=== PATIENT | male | born 1955 | race Caucasian/White ===

== ENCOUNTER 2017-09-04 09:56 | Emergency (ER) | payer BC, OTHER ==
[2017-09-04] MEDS ORDERED: HYDROmorphone 1 MG/ML 1 ML SYRINGE IVP STA ×2 (10:40→12:21)
[2017-09-04] MEDS ORDERED: KETOROLAC 30 MG/ML 1 ML VIAL IVP STA (10:40)
[2017-09-04] MEDS ORDERED: ONDANSETRON 4 MG/2 ML VIAL IVP STA (10:40)
[2017-09-04] MEDS ORDERED: SODIUM CHLORIDE 0.9% 1,000 ML IV STA ×2 (10:40)
[2017-09-04 11:16] LABS: Amorphous Sediment,Urine Few /hpf; Appearance,Urine Turbid (Clear); Basophils % (A) 0 %; Bilirubin,Urine Negative (Negative); Blood,Urine Moderate (Negative); Color,Urine Yellow; Eosinophils # (A) 0.1 k/uL (0-0.7); Eosinophils % (A) 1 %; Glucose,Urine (UA) Negative (Negative); HCT 44.7 % (39.0-53.0); HGB 15.1 gm/dL (13.0-17.5); Ketones,Urine Negative (Negative); Leukocyte Esterase,Urine Negative (Negative); Lymphocytes # (A) 0.7 k/uL (1.0-4.8); Lymphocytes % (A) 8 %; MCHC 33.7 g/dL (31.0-37.0); Mean Platelet Volume 6.5; Monocytes # (A) 0.4 k/uL (0-1.0); Monocytes % (A) 4 %; Mucus,Urine Moderate /hpf; Neutrophils # (A) 7.6 k/uL (1.3-7.7); Neutrophils % (A) 86 %; Nitrite,Urine Negative (Negative); PH, Urine 5.5 (5.0-8.0); Platelet Count 204 k/uL (150-450); Protein,Urine Trace (Negative); RBC 4.71 m/uL (4.30-5.90); RBC,Urine 17 /hpf (0-5); RDW 12.3 % (11.5-15.5); Specific Gravity,Urine 1.019 (1.001-1.035); Urobilinogen,Urine <2.0 mg/dL (<2.0); WBC 8.9 k/uL (3.8-10.6); WBC,Urine 16 /hpf (0-5)
[2017-09-04 11:17] LABS: Anion Gap 8 mmol/L; Blood Urea Nitrogen 19 mg/dL (9-20); Calcium 9.7 mg/dL (8.4-10.2); Carbon Dioxide 29 mmol/L (22-30); Chloride 103 mmol/L (98-107); Glucose 108 mg/dL (74-99); Potassium 4.9 mmol/L (3.5-5.1); Sodium 140 mmol/L (137-145)
--- NOTE | 2017-09-04 11:29 | ED ---
Abdominal Pain HPI - General Chief Complaint: Abdominal Pain Stated Complaint: POSS KIDNEY STONE Time Seen by Provider: 09/04/17 10:25 Source: patient Mode of arrival: ambulatory Limitations: no limitations - History of Present Illness Initial Comments: This 62-year-old white male presents with a complaint of some left flank pain. He states that it is fairly severe in nature. He came on very suddenly earlier this morning. It radiates into the left lower quadrant. He does have a urge to urinate. He has occasional dysuria. He denies any hematuria. He denies any previous similar incidents. He denies any history of kidney stones in the past. There is no fever or chills. He has had some nausea and one episode of vomiting but no diarrhea. No other complaints or modifying factors. - Related Data Home Medications Medication Instructions Recorded Confirmed Ibuprofen [Motrin] 800 mg PO TID PRN 09/04/17 09/04/17 Multivitamins, Thera [Multivitamin 1 tab PO DAILY 09/04/17 09/04/17 (formulary)] Previous Rx's Medication Instructions Recorded Ciprofloxacin HCl [Cipro] 500 mg PO Q12HR #14 tablet 09/04/17 Hydrocodone/Acetaminophen [[place] 1 - 2 each PO Q4HR PRN #30 tab 09/04/17 5-325] Ibuprofen [Motrin] 800 mg PO Q8H PRN #20 tab 09/04/17 Ondansetron [Zofran ODT] 8 mg PO Q8HR PRN #12 tab 09/04/17 Tamsulosin [Flomax] 0.4 mg PO DAILY #15 cap 09/04/17 Allergies Allergy/AdvReac Type Severity Reaction Status Date / Time No Known Allergies Allergy Verified 09/04/17 10:15 Review of Systems ROS Statement: Those systems with pertinent positive or pertinent negative responses have been documented in the HPI. ROS Other: All systems not noted in ROS Statement are negative. Past Medical History Past Medical History: Deep Vein Thrombosis (DVT), Pulmonary Embolus (PE) History of Any Multi-Drug Resistant Organisms: None Reported Past Surgical History: No Surgical Hx Reported Past Psychological History: No Psychological Hx Reported Smoking Status: Never smoker Past Alcohol Use History: None Reported Past Drug Use History: None Reported General Exam - General Exam Comments Initial Comments: GENERAL: The patient is well nourished and well hydrated. VITAL SIGNS: Heart rate, blood pressure, respiratory rate reviewed as recorded in nurse's notes. EYES: Pupils are round and reactive. Extraocular movements are intact. No conjunctival / lid redness or swelling. ENT: No external evidence of injury, swelling, or ecchymosis. Airway is patent. Throat is clear. NECK: Nontender. No swelling or evidence of injury. No subcutaneous emphysema. Trachea is midline. No thyroid mass. HEART: Regular rate and rhythm. Good peripheral pulses. LUNGS/CHEST: Breath sounds clear and equal bilaterally. No rales, rhonchi, or wheezes. No ecchymosis, subcutaneous emphysema, or tenderness. ABDOMEN: Tenderness is noted into the left lower quadrant. There is moderate to significant left flank tenderness noted. No palpable masses or organomegaly. No peritoneal signs. No abdominal wall swelling or ecchymosis. EXTREMITIES: No extremity tenderness. Normal muscle tone and function. No thoracolumbar tenderness. NEUROLOGIC: Sensation is grossly intact. Cranial nerve exam reveals face is symmetrical, tongue is midline, speech is clear. SKIN: No abrasions or ecchymosis is noted. No induration or masses noted. PSYCHIATRIC: Alert and oriented. Appropriate behavior and judgment. Limitations: no limitations Course Vital Signs 09/04/17 10:09 Temperature 97.7 F Pulse Rate 73 Respiratory 20 Rate Blood Pressure 130/78 O2 Sat by Pulse 99 Oximetry Medical Decision Making - Medical Decision Making The patient is seen and examined. All diagnostics are reviewed. An IV is established and he receives Dilaudid, Toradol, and Zofran intravenously. He has significant relief noted on recheck. The pain did later come back and he receives another 0.5 mg of Dilaudid as well as 10 mg of Reglan. The laboratory is unremarkable. The urinalysis does show increased red blood cells and white blood cells. The computed tomography scan of the abdomen and pelvis does show a 4 mm distal left ureteral stone with hydroureteronephrosis. It is felt as though his symptoms are quite consistent with kidney stones as well. It is felt as though she is stable for outpatient treatment. He understands and agrees with this plan and leaves in no identifiable distress. - Lab Data Result diagrams: 09/04/17 10:48 09/04/17 10:48 Lab Results 09/04/17 09/04/17 09/04/17 Range/Units 10:48 10:48 10:48 WBC 8.9 (3.8-10.6) k/uL RBC 4.71 (4.30-5.90) m/uL Hgb 15.1 (13.0-17.5) gm/dL Hct 44.7 (39.0-53.0) % MCV 95.0 (80.0-100.0) fL MCH 32.0 (25.0-35.0) pg MCHC 33.7 (31.0-37.0) g/dL RDW 12.3 (11.5-15.5) % Plt Count 204 (150-450) k/uL Neutrophils % 86 % Lymphocytes % 8 % Monocytes % 4 % Eosinophils % 1 % Basophils % 0 % Neutrophils # 7.6 (1.3-7.7) k/uL Lymphocytes # 0.7 L (1.0-4.8) k/uL Monocytes # 0.4 (0-1.0) k/uL Eosinophils # 0.1 (0-0.7) k/uL Basophils # 0.0 (0-0.2) k/uL Sodium 140 (137-145) mmol/L Potassium 4.9 (3.5-5.1) mmol/L Chloride 103 (98-107) mmol/L Carbon Dioxide 29 (22-30) mmol/L Anion Gap 8 mmol/L BUN 19 (9-20) mg/dL Creatinine 1.19 (0.66-1.25) mg/dL Est GFR (MDRD) Af Amer >60 (>60 ml/min/1.73 sqM) Est GFR (MDRD) Non-Af >60 (>60 ml/min/1.73 sqM) Glucose 108 H (74-99) mg/dL Calcium 9.7 (8.4-10.2) mg/dL Urine Color Yellow Urine Appearance Turbid (Clear) Urine pH 5.5 (5.0-8.0) Ur Specific [place] 1.019 (1.001-1.035) Urine Protein Trace H (Negative) Urine Glucose (UA) Negative (Negative) Urine Ketones Negative (Negative) Urine Blood Moderate H (Negative) Urine Nitrite Negative (Negative) Urine Bilirubin Negative (Negative) Urine Urobilinogen <2.0 (<2.0) mg/dL Ur Leukocyte Esterase Negative (Negative) Urine RBC 17 H (0-5) /hpf Urine WBC 16 H (0-5) /hpf Amorphous Sediment Few H (None) /hpf Urine Mucus Moderate H (None) /hpf Disposition Clinical Impression: Left flank pain, Abdominal pain, Nausea and vomiting, Kidney stone on left side Disposition: HOME SELF-CARE Condition: Good Instructions: Kidney Stones (ED) Prescriptions: Ciprofloxacin HCl [Cipro] 500 mg PO Q12HR #14 tablet Hydrocodone/Acetaminophen [[place] 5-325] 1 - 2 each PO Q4HR PRN #30 tab PRN Reason: Pain Ibuprofen [Motrin] 800 mg PO Q8H PRN #20 tab PRN Reason: Pain Ondansetron [Zofran ODT] 8 mg PO Q8HR PRN #12 tab PRN Reason: Nausea Tamsulosin [Flomax] 0.4 mg PO DAILY #15 cap Referrals: Thomas Diamond DO [Primary Care Provider] - 1-2 days Marko Mendez MD [STAFF PHYSICIAN] - 09/08/17 Time of Disposition: 12:23
--- NOTE | 2017-09-04 12:03 | CT ---
EXAMINATION TYPE: CT abdomen pelvis wo con DATE OF EXAM: 09/04/2017 COMPARISON: NONE HISTORY: Patient complains of left flank pain, nausea, and difficulty urinating. CT DLP: 983 mGycm Examination of the solid and hollow viscera is limited given the lack of contrast. FINDINGS: LUNG BASES: No evidence for nodule. No evidence for infiltrate. LIVER/GB: The gallbladder is unremarkable. Small subcentimeter hepatic cysts.. PANCREAS: No pancreatic mass identified. No inflammatory process seen. SPLEEN: No evidence for splenomegaly. No intrasplenic lesions seen. ADRENALS: No adrenal nodules identified. No evidence for thickening. KIDNEYS: 4 mm distal left ureteral calculus approximately 3 cm from the urinary bladder results in mi ld left-sided hydroureteronephrosis. Mild left perinephric stranding. 4.4 mm nonobstructing calculus lower pole left kidney. Mid to upper pole calculus right kidney measuring 8.5 mm. BOWEL: Appendix has a normal appearance. No evidence of bowel obstruction. No inflammatory process. Lymph nodes: No evidence for adenopathy greater than 1 cm. Abdominal aorta: Atheromatous changes seen. No evidence for aneurysm. Genital organs: No significant abnormality. Other: No significant abnormality. IMPRESSION: 4 mm distal left ureteral calculus approximately 3 cm from the urinary bladder results in mild left-s ided hydroureteronephrosis.
[2017-09-04] MEDS ORDERED: METOCLOPRAMIDE 5 MG/ML 2 ML VIAL IVP STA (12:21)
[2017-09-04 12:55] VITALS: BP 101/56; PULSE 65; RESP 18; TEMP 96.7
== END 2017-09-04 12:55 | disposition home or self-care (01) ==
LOC: EC 09:56
DX: N13.2 Hydronephrosis with renal and ureteral calculous obstruction (principal); R11.2 Nausea with vomiting, unspecified; Z86.711 Personal history of pulmonary embolism; Z86.718 Personal history of other venous thrombosis and embolism; Z79.899 Other long term (current) drug therapy
CPT/HCPCS: 36415; 80048; 85025; 81001; 74176; 99284; 96374; 96375 ×3; 96376; 96361 ×2; J2765; J2405; J1885; J1170

== ENCOUNTER 2018-01-16 12:05 | Observation (INO) | payer BC ==
[2018-01-16] MEDS ORDERED: NITROGLYCERIN OINT 1 INCH/GM PACKET TOPICAL STA (12:44)
[2018-01-16] MEDS ORDERED: RX INFO: IV CONTRAST WAS GIVEN 1 EACH MISC MISCELLANE PRN (12:44)
[2018-01-16] MEDS ORDERED: ASPIRIN 81 MG PO STA (12:44)
--- NOTE | 2018-01-16 12:47 | ED ---
General Adult HPI - General Chief complaint: Chest Pain Stated complaint: Chest Pain Time Seen by Provider: 01/16/18 12:25 Source: patient, family, RN notes reviewed Mode of arrival: wheelchair Limitations: no limitations - History of Present Illness Initial comments: Patient is a pleasant 62-year-old male presenting to the emergency Department with chest discomfort. Onset started a day or so ago. Discomfort was left lower lateral ribs. That discomfort has resolved. Yesterday afternoon patient had some discomfort of his left upper back that is mild and remains. Approximately 1 hour prior to arrival patient had discomfort of his left chest under the breast. Patient has difficulty describing this type of discomfort. Discomfort was somewhat severe however now is only mild. Patient did have associated dyspnea. Discomfort also increases with deep breaths and cough. Patient does feel nauseated and sweaty. Patient does have history of pulmonary embolism approximately 7 years ago. Patient is not currently on any anticoagulation. Patient is unclear symptoms are similar or not. - Related Data Home Medications Medication Instructions Recorded Confirmed Calcium/Magnesium/Zinc 1 tab PO DAILY 01/16/18 01/16/18 [Epzbflt-Lnxinlkap-Fndz Tablet] Vitamin B Complex 1 cap PO DAILY 01/16/18 01/16/18 Allergies Allergy/AdvReac Type Severity Reaction Status Date / Time acetaminophen [From [place]] AdvReac Abdominal Verified 01/16/18 12:33 Pain/Hallucinations/Dizziness hydrocodone [From [place]] AdvReac Abdominal Verified 01/16/18 12:33 Pain/Hallucinations/Dizziness Review of Systems ROS Statement: Those systems with pertinent positive or pertinent negative responses have been documented in the HPI. ROS Other: All systems not noted in ROS Statement are negative. Constitutional: Denies: fever Eyes: Denies: eye pain ENT: Denies: ear pain Respiratory: Reports: dyspnea. Denies: cough Cardiovascular: Reports: chest pain Endocrine: Denies: fatigue Gastrointestinal: Reports: nausea. Denies: abdominal pain Genitourinary: Denies: dysuria Musculoskeletal: Reports: back pain Skin: Denies: rash Neurological: Denies: headache Past Medical History Past Medical History: Deep Vein Thrombosis (DVT), Pulmonary Embolus (PE) History of Any Multi-Drug Resistant Organisms: None Reported Past Surgical History: No Surgical Hx Reported Past Psychological History: No Psychological Hx Reported Smoking Status: Never smoker Past Alcohol Use History: None Reported Past Drug Use History: None Reported General Exam Limitations: no limitations General appearance: alert, in no apparent distress Head exam: Present: atraumatic Eye exam: Present: normal appearance, PERRL ENT exam: Present: normal oropharynx Neck exam: Present: normal inspection Respiratory exam: Present: normal lung sounds bilaterally. Absent: chest wall tenderness Cardiovascular Exam: Present: regular rate, normal rhythm, normal heart sounds Expanded Peripheral pulses: 2+: Radial (R), Radial (L), Posterior Tibialis (R), Posterior Tibialis (L) GI/Abdominal exam: Present: soft. Absent: tenderness Extremities exam: Present: normal inspection. Absent: pedal edema, calf tenderness Back exam: Present: normal inspection. Absent: tenderness Neurological exam: Present: alert Psychiatric exam: Present: normal affect, normal mood Skin exam: Present: normal color Course Vital Signs 01/16/18 12:06 Temperature 98.1 F Pulse Rate 75 Respiratory 18 Rate Blood Pressure 130/60 O2 Sat by Pulse 98 Oximetry - Reevaluation(s) Reevaluation #1: 01/16/18 14:28 Patient does not meet sepsis criteria EKG Findings - EKG Comments: EKG Findings:: Normal sinus rhythm 72. AL 156. QRS 90. QT 364. QTC 398. Left axis. Left anterior fascicular block. No acute ST change. Medical Decision Making - Medical Decision Making Patient reevaluated and resting comfortably in bed. Patient and family updated on results and plan. Case was discussed with Dr. wilson, who will admit for Dr. Garcia - Lab Data Result diagrams: 01/16/18 12:20 01/16/18 12:20 Lab Results 01/16/18 01/16/18 01/16/18 Range/Units 12:20 12:20 12:20 WBC 7.8 (3.8-10.6) k/uL RBC 4.50 (4.30-5.90) m/uL Hgb 14.4 (13.0-17.5) gm/dL Hct 42.4 (39.0-53.0) % MCV 94.3 (80.0-100.0) fL MCH 31.9 (25.0-35.0) pg MCHC 33.9 (31.0-37.0) g/dL RDW 12.7 (11.5-15.5) % Plt Count 175 (150-450) k/uL Neutrophils % 79 % Lymphocytes % 10 % Monocytes % 8 % Eosinophils % 1 % Basophils % 0 % Neutrophils # 6.1 (1.3-7.7) k/uL Lymphocytes # 0.8 L (1.0-4.8) k/uL Monocytes # 0.6 (0-1.0) k/uL Eosinophils # 0.1 (0-0.7) k/uL Basophils # 0.0 (0-0.2) k/uL PT (9.0-12.0) sec INR (<1.2) APTT (22.0-30.0) sec Sodium 143 (137-145) mmol/L Potassium 4.3 (3.5-5.1) mmol/L Chloride 105 (98-107) mmol/L Carbon Dioxide 24 (22-30) mmol/L Anion Gap 14 mmol/L BUN 14 (9-20) mg/dL Creatinine 0.91 (0.66-1.25) mg/dL Est GFR (CKD-EPI)AfAm >90 (>60 ml/min/1.73 sqM) Est GFR (CKD-EPI)NonAf 89 (>60 ml/min/1.73 sqM) Glucose 91 (74-99) mg/dL Calcium 9.6 (8.4-10.2) mg/dL Magnesium 2.1 (1.6-2.3) mg/dL Total Bilirubin 1.1 (0.2-1.3) mg/dL AST 16 L (17-59) U/L ALT 27 (21-72) U/L Alkaline Phosphatase 77 (38-126) U/L Total Creatine Kinase 24 L (55-170) U/L CK-MB (CK-2) <0.2 (0.0-2.4) ng/mL CK-MB (CK-2) Rel Index Troponin I <0.012 (0.000-0.034) ng/mL Total Protein 6.2 L (6.3-8.2) g/dL Albumin 3.9 (3.5-5.0) g/dL 01/16/18 Range/Units 12:20 WBC (3.8-10.6) k/uL RBC (4.30-5.90) m/uL Hgb (13.0-17.5) gm/dL Hct (39.0-53.0) % MCV (80.0-100.0) fL MCH (25.0-35.0) pg MCHC (31.0-37.0) g/dL RDW (11.5-15.5) % Plt Count (150-450) k/uL Neutrophils % % Lymphocytes % % Monocytes % % Eosinophils % % Basophils % % Neutrophils # (1.3-7.7) k/uL Lymphocytes # (1.0-4.8) k/uL Monocytes # (0-1.0) k/uL Eosinophils # (0-0.7) k/uL Basophils # (0-0.2) k/uL PT 10.0 (9.0-12.0) sec INR 1.0 (<1.2) APTT 23.6 (22.0-30.0) sec Sodium (137-145) mmol/L Potassium (3.5-5.1) mmol/L Chloride (98-107) mmol/L Carbon Dioxide (22-30) mmol/L Anion Gap mmol/L BUN (9-20) mg/dL Creatinine (0.66-1.25) mg/dL Est GFR (CKD-EPI)AfAm (>60 ml/min/1.73 sqM) Est GFR (CKD-EPI)NonAf (>60 ml/min/1.73 sqM) Glucose (74-99) mg/dL Calcium (8.4-10.2) mg/dL Magnesium (1.6-2.3) mg/dL Total Bilirubin (0.2-1.3) mg/dL AST (17-59) U/L ALT (21-72) U/L Alkaline Phosphatase (38-126) U/L Total Creatine Kinase (55-170) U/L CK-MB (CK-2) (0.0-2.4) ng/mL CK-MB (CK-2) Rel Index Troponin I (0.000-0.034) ng/mL Total Protein (6.3-8.2) g/dL Albumin (3.5-5.0) g/dL - Radiology Data Radiology results: report reviewed (CT Jun of the chest shows no pulmonary embolism. Probable small left basilar pneumonia.) Disposition Clinical Impression: Chest pain, Pneumonia Disposition: ADMITTED IP TO THIS HOSP Is patient prescribed a controlled substance at d/c from ED?: No Referrals: Thomas Diamond DO [Primary Care Provider] - 1-2 days Decision Time: 14:29
[2018-01-16 12:59] LABS: Basophils % (A) 0 %; Eosinophils # (A) 0.1 k/uL (0-0.7); Eosinophils % (A) 1 %; HCT 42.4 % (39.0-53.0); HGB 14.4 gm/dL (13.0-17.5); Lymphocytes # (A) 0.8 k/uL (1.0-4.8); Lymphocytes % (A) 10 %; MCH 31.9 pg (25.0-35.0); MCHC 33.9 g/dL (31.0-37.0); MCV 94.3 fL (80.0-100.0); Mean Platelet Volume 6.7; Monocytes # (A) 0.6 k/uL (0-1.0); Monocytes % (A) 8 %; Neutrophils # (A) 6.1 k/uL (1.3-7.7); Neutrophils % (A) 79 %; Platelet Count 175 k/uL (150-450); RDW 12.7 % (11.5-15.5); WBC 7.8 k/uL (3.8-10.6)
[2018-01-16 13:02] LABS: Partial Thromboplastin Time 23.6 sec (22.0-30.0)
[2018-01-16 13:04] LABS: ALT 27 U/L (21-72); AST 16 U/L (17-59); Albumin 3.9 g/dL (3.5-5.0); Alkaline Phosphatase 77 U/L (38-126); Anion Gap 14 mmol/L; Blood Urea Nitrogen 14 mg/dL (9-20); Calcium 9.6 mg/dL (8.4-10.2); Carbon Dioxide 24 mmol/L (22-30); Chloride 105 mmol/L (98-107); Glucose 91 mg/dL (74-99); Magnesium 2.1 mg/dL (1.6-2.3); Potassium 4.3 mmol/L (3.5-5.1); Sodium 143 mmol/L (137-145); Total Bilirubin 1.1 mg/dL (0.2-1.3); Total Protein 6.2 g/dL (6.3-8.2)
[2018-01-16 13:17] LABS: Creatine Kinase 24 U/L (55-170)
[2018-01-16 13:30] LABS: Creatine Kinase MB <0.2 ng/mL (0.0-2.4); Troponin I <0.012 ng/mL (0.000-0.034)
--- NOTE | 2018-01-16 13:36 | CT ---
EXAMINATION TYPE: CT angio chest DATE OF EXAM: 01/16/2018 COMPARISON: 12/05/2010 HISTORY: Mid to Left sided chest pain with shortness of breath CT DLP: 248.1 mGycm. Automated Exposure Control for Dose Reduction was Utilized. CONTRAST: CTA scan of the thorax is performed with IV Contrast, patient injected with 80 mL of Isovue 370, pulm onary embolism protocol. MIP Images are created on CT scanner and reviewed. FINDINGS: LUNGS: Calcified right upper lobe granuloma is identified. Noncalcified right middle lobe pulmonary n odule measures 5 mm on series 5 image 83 and is similar in size to the prior of 12/05/2010 favoring be nign etiology. Pleural parenchymal scarring is seen within the lingula and right lower lobe as well a s multifocal atelectasis. Low-density airspace disease within the left lung base on series 4 image 11 0 enhances less than the adjacent curvilinear atelectasis posterior this and overlies a trace left pl eural effusion. No pneumothorax is seen. The tracheobronchial tree is patent. MEDIASTINUM: There is satisfactory enhancement of the pulmonary artery and its branches, there is no CT evidence for pulmonary embolism. There are no greater than 1 cm hilar or mediastinal lymph nodes. No cardiomegaly or pericardial effusion is seen. OTHER: 6 mm nonobstructing right upper pole renal calculus is present. Scattered hypoattenuated hepat ic lesions are stable from 2010 representing benign cysts.. IMPRESSION: 1. No evidence of pulmonary embolus. 2. Findings favoring small area of left basilar pneumonia, adjacent atelectasis, and trace left parap neumonic effusion. 3. Nonobstructing 6 mm right upper pole renal calculus.
[2018-01-16] MEDS ORDERED: AZITHROMYCIN 500 MG in SODIUM CHLORIDE 0.9% 250 ML IVPB STA (14:29)
[2018-01-16] MEDS ORDERED: PNEUMONIA PROTOCOL UTILIZED 1 EACH MISC PO PRN (14:29)
[2018-01-16] MEDS ORDERED: NITROGLYCERIN SL TABS 0.4 MG TAB SUBLINGUAL PRN (14:29)
[2018-01-16] MEDS ORDERED: cefTRIAXone IN SWFI 1,000 MG/10 ML SYRINGE IVP STA (14:29)
[2018-01-16] MEDS: IBUPROFEN 400 MG TAB PO PRN (17:43)
[2018-01-16] MEDS: NITROGLYCERIN OINT 1 INCH/GM PACKET TOPICAL SCH (17:43)
[2018-01-16 18:22] LABS: Creatine Kinase 23 U/L (55-170)
[2018-01-16 18:36] LABS: Creatine Kinase MB <0.2 ng/mL (0.0-2.4); Troponin I <0.012 ng/mL (0.000-0.034)
[2018-01-16] MEDS ORDERED: TEMAZEPAM 15 MG CAP PO PRN (20:08)
--- NOTE | 2018-01-16 21:45 | HP ---
HISTORY AND PHYSICAL CHIEF COMPLAINT: Left-sided chest pain. HISTORY OF PRESENT ILLNESS: This 62-year-old gentleman with a past medical history of multiple medical issues including DVT, history of pulmonary embolus, skin cancer, tonsillectomy, being followed by Dr. Diamond in the outpatient setting was apparently working overhead for some time. The patient subsequently developed chest pain over the left side of the chest for the last couple of days which is moving to the front of the chest and because of concerns, the patient came to [facility] and admitted for further evaluation and treatment. Patient also complaining of left upper back pain also. Occasional cough is also reported after admission. The blood work is basically unremarkable and the patient also had a chest CTA showed no evidence of any pulmonary embolism but however showed suspicious left lower lobe pneumonia and some parapneumonic effusion and nonobstructing 6 mm right upper pole renal calculus. There is no history of fever, rigors or chills. No history of headache, loss of consciousness, seizures. PAST MEDICAL HISTORY: History of DVT, PE, history of skin cancer, kidney stones and tonsillectomy. MEDICATIONS PRIOR TO ADMISSION: Include: 1. Vitamin B complex 1 p.o. daily. 2. Calcium, magnesium, zinc 1 p.o. daily. ALLERGIES: NORCO. FAMILY HISTORY: History of CVA, TIA, pacemaker, brain aneurysm. SOCIAL HISTORY: No history of smoking. No history of alcohol intake. REVIEW OF SYSTEMS: ENT: No diminished vision or hearing. Cardiovascular as mentioned earlier. Respiratory: As mentioned earlier. GI no nausea, vomiting or diarrhea. no dysuria. Nervous system: No numbness, weakness. Allergy/Immunology: No asthma or hayfever. Musculoskeletal as mentioned earlier. Hematology/Oncology: No history of anemia. Endocrine: No history of diabetes or hypothyroidism. Constitutional: As mentioned earlier. Dermatology: Negative. Rheumatology: Negative. Psychiatric: As mentioned earlier. PHYSICAL EXAMINATION: GENERAL: The patient is alert and oriented times three. VITAL SIGNS: Pulse 74, blood pressure 130/77, respirations 16, temperature 97.6, pulse ox 98% on room air. HEENT: Conjunctivae normal. Oral mucosa moist. NECK: Is no jugular venous distention. No carotid bruit. No lymph node enlargement. CARDIOVASCULAR System: S1, S2. No S3, no S4. RESPIRATORY: Breath sounds diminished in the bases. A few scattered rhonchi. No crackles. ABDOMEN: Soft, nontender. No mass palpable. LEGS: No edema and no swelling. NERVOUS SYSTEM: Higher functions as mentioned earlier. Moves all four limbs. No focal deficits. LYMPHATICS: No lymph nodes palpable in the neck, axillae or groin. SKIN: No ulcer, rash or bleeding. LABS: CBC within normal limits. Sodium 143, potassium 4.3. CT scan noted. ASSESSMENT: 1. Chest pain, rule out coronary artery disease. 2. Possible left lower pneumonia with pleurisy. 3. History of deep venous thrombosis, pulmonary embolism. 4. History of nephrolithiasis. 5. History of tonsillectomy. RECOMMENDATIONS AND DISCUSSION: In this 62-year-old gentleman who presented with multiple complex medical issues, we will monitor the patient closely, continue the current medications, management and symptomatic treatment. Otherwise I would recommend unstable angina protocol and closely follow with Cardiology. I would also recommend broad-spectrum IV antibiotics and bronchodilators. Pain medications. Repeat labs. DVT prophylaxis. Guarded prognosis because of multiple complex medical issues and further recommendations to follow. A copy of dictation being forwarded to Dr. Diamond who is the primary physician. See orders for further details. MMODL / IJN: [id number] /
[2018-01-16] MEDS: HEPARIN SODIUM,PORCINE 5,000 UNIT/ML 1 ML VIAL SQ SCH (22:32)
[2018-01-17] MEDS: KETOROLAC 30 MG/ML 1 ML VIAL IVP SCH ×3 (02:55→12:18)
[2018-01-17] MEDS: NITROGLYCERIN OINT 1 INCH/GM PACKET TOPICAL SCH ×2 (02:55→05:20)
[2018-01-17] MEDS: IBUPROFEN 400 MG TAB PO PRN ×2 (05:24)
[2018-01-17] MEDS ORDERED: PANTOPRAZOLE 40 MG TABLET PO SCH (07:30)
--- NOTE | 2018-01-17 07:48 | XR ---
EXAMINATION TYPE: XR chest 2V DATE OF EXAM: 01/17/2018 COMPARISON: 01/16/2018 HISTORY: Shortness of breath TECHNIQUE: Frontal and lateral views of the chest are obtained. FINDINGS: Right upper lobe benign granuloma is seen. Retrocardiac opacity on the recent CT of 018 is present on the lateral image only. There is no pulmonary vascular congestion, pleural effusion , or pneumothorax seen. The cardiac silhouette size is within normal limits. The osseous structure s are intact. IMPRESSION: Small retrocardiac airspace disease as seen on the recent CT that was suggestive of pneu monia and atelectasis.
[2018-01-17] MEDS: HEPARIN SODIUM,PORCINE 5,000 UNIT/ML 1 ML VIAL SQ SCH (08:19)
--- NOTE | 2018-01-17 08:27 | P.CRDCN ---
History of Present Illness Consult date: 01/17/18 Requesting physician: Arik Larry Consult reason: chest pain Chief complaint: Left-sided flank and rib pain History of present illness: This is a pleasant 62-year-old gentleman with history of DVT and PE approximately 7 years ago, history of skin cancer, cardiac risk factors are negative for hypertension, no diabetes, no hyperlipidemia, nonsmoker. He presented to the hospital with symptoms of discomfort in his left flank and rib area, he denies any anterior chest discomfort. He was concerned that this may be a recurrent a blood clot in his lung and for this reason he came to the emergency for further evaluation. Patient does state that he has been having a cough at home. CTA of the chest was performed on arrival here which revealed no evidence for pulmonary embolism. Findings favoring a small area of left basilar pneumonia with adjacent atelectasis of left parapneumonic effusion. Nonobstructive 6 mm right upper pole renal calculus was also noted. EKG on arrival here showed a normal sinus rhythm with no acute changes. Chest x-ray showed small retrocardiac air space disease as seen on the CAT scan, suggestive of possible pneumonia. Blood pressure 130/60 with a heart rate in the 70s, 98% on room air. Temperature 98.1. Blood cell count is normal, hemoglobin 14.4, platelet count 175. Sodium 143, potassium 4.3, BUN 14, creatinine 0.9. Troponins are negative 2. At the time of my examination this morning, patient just had an episode of vomiting, feels extremely weak, he does now have a more considerable cough and is experiencing some chills. Denies any chest discomfort. Past Medical History Past Medical History: Cancer, Deep Vein Thrombosis (DVT), Pulmonary Embolus (PE) Additional Past Medical History / Comment(s): skin cancer, past kidney stone, hx of mild concussion /work inj, broken jaw wired/wiring since removed. History of Any Multi-Drug Resistant Organisms: None Reported Past Surgical History: Tonsillectomy Additional Past Surgical History / Comment(s): skin cancer removed near eye. and skin bx on back-neg. keke cataracts removed Past Anesthesia/Blood Transfusion Reactions: No Reported Reaction Smoking Status: Never smoker - Past Family History Father Family Medical History: CVA/TIA Additional Family Medical History / Comment(s): pacemaker, brain anuerysm- Mother Family Medical History: CVA/TIA, Myocardial Infarction ([place]) Additional Family Medical History / Comment(s): Medications and Allergies Home Medications Medication Instructions Recorded Confirmed Type Calcium/Magnesium/Zinc 1 tab PO DAILY 01/16/18 01/16/18 History [Ptalxbn-Rqdmafbtg-Hurf Tablet] Vitamin B Complex 1 cap PO DAILY 01/16/18 01/16/18 History Allergies Allergy/AdvReac Type Severity Reaction Status Date / Time acetaminophen [From [facility]] AdvReac Abdominal Verified 01/16/18 12:33 Pain/Hallucinations/Dizziness hydrocodone [From [facility]] AdvReac Abdominal Verified 01/16/18 12:33 Pain/Hallucinations/Dizziness Physical Exam Vitals: Vital Signs Temp Pulse Pulse Resp BP BP Pulse Ox 01/17/18 04:00 97.7 F 64 16 101/55 96 01/17/18 00:00 97.6 F 88 16 127/56 99 01/16/18 20:00 99.0 F 83 18 129/64 95 01/16/18 17:57 80 16 106/60 98 01/16/18 15:15 97.3 F L 74 16 135/73 98 01/16/18 14:29 74 16 100/57 99 01/16/18 12:06 98.1 F 75 18 130/60 98 Intake and Output 01/16/18 01/17/18 01/17/18 22:59 06:59 14:59 Intake Total 118 Balance 118 Intake: Oral 118 Other: Voiding Method Toilet Urinal # Voids 1 1 Weight 82.6 kg PHYSICAL EXAMINATION: GENERAL: HEENT: Head is atraumatic, normocephalic. Pupils equal, round. Sclera anicteric. Conjunctiva are clear. Mucous membranes of the mouth are moist. Neck is supple. There is no elevated jugular venous pressure.] bruit is heard. HEART EXAMINATION: Heart S1, S2 normal. No murmur or gallop heard. CHEST EXAMINATION: Lungs reveal fine crackles to the left posterior base ABDOMEN: Soft, nontender. Bowel sounds are heard. No organomegaly noted. EXTREMITIES: 2+ peripheral pulses with no evidence of peripheral edema and no calf tenderness noted. NEUROLOGIC patient is awake, alert and oriented -3. . Results 01/16/18 12:20 01/16/18 12:20 Cardiac Enzymes 0501/16/18 01/16/18 Range/Units 12:20 12:20 17:37 AST 16 L (17-59) U/L CK-MB (CK-2) <0.2 <0.2 (0.0-2.4) ng/mL Troponin I <0.012 <0.012 (0.000-0.034) ng/mL Coagulation 01/16/18 Range/Units 12:20 PT 10.0 (9.0-12.0) sec APTT 23.6 (22.0-30.0) sec CBC 01/16/18 Range/Units 12:20 WBC 7.8 (3.8-10.6) k/uL RBC 4.50 (4.30-5.90) m/uL Hgb 14.4 (13.0-17.5) gm/dL Hct 42.4 (39.0-53.0) % Plt Count 175 (150-450) k/uL Comprehensive Metabolic Panel 01/16/18 Range/Units 12:20 Sodium 143 (137-145) mmol/L Potassium 4.3 (3.5-5.1) mmol/L Chloride 105 (98-107) mmol/L Carbon Dioxide 24 (22-30) mmol/L BUN 14 (9-20) mg/dL Creatinine 0.91 (0.66-1.25) mg/dL Glucose 91 (74-99) mg/dL Calcium 9.6 (8.4-10.2) mg/dL AST 16 L (17-59) U/L ALT 27 (21-72) U/L Alkaline Phosphatase 77 (38-126) U/L Total Protein 6.2 L (6.3-8.2) g/dL Albumin 3.9 (3.5-5.0) g/dL Current Medications Generic Name Dose Route Start Last Admin Trade Name Freq PRN Reason Stop Dose Admin Albuterol/Ipratropium 3 ml 01/17/18 08:00 Duoneb 0.5 Mg-3 Mg/3 Ml Soln INHALATION RT-QID AIDEN Aspirin 325 mg 01/17/18 09:00 01/17/18 08:19 Aspirin PO 325 mg DAILY AIDEN Administration Azithromycin 500 mg 01/17/18 09:00 01/17/18 08:19 Zithromax PO 500 mg DAILY AIDEN Administration Ceftriaxone Sodium 1,000 mg 01/17/18 09:00 01/17/18 08:19 Rocephin IVP 01/20/18 09:01 1,000 mg Q24HR AIDEN Administration Heparin Sodium (Porcine) 5,000 unit 01/16/18 21:00 01/17/18 08:19 Heparin SQ 5,000 unit Q12HR AIDEN Administration Ibuprofen 400 mg 01/16/18 17:36 01/17/18 05:24 Motrin PO 400 mg Q6HR PRN Administration Pain Ketorolac Tromethamine 15 mg 01/17/18 00:00 01/17/18 05:20 Toradol IVP 01/20/18 21:34 Not Given Q6HR [facility] Miscellaneous Information 1 each 01/16/18 12:44 01/16/18 13:01 Rx Info: Iv Contrast Was Given MISCELLANE 01/18/18 12:44 1 each DAILY PRN Administration Per Protocol Miscellaneous Information 1 each 01/16/18 14:29 Pneumonia Protocol Utilized PO ONCE PRN Per Protocol Nitroglycerin 1 inch 01/16/18 18:00 01/17/18 05:20 Nitro-Bid Oint TOPICAL Not Given Q6HR [facility] Nitroglycerin 0.4 mg 01/16/18 14:29 Nitrostat SUBLINGUAL Q5M PRN Chest Pain Pantoprazole Sodium 40 mg 01/17/18 07:30 01/17/18 06:37 Protonix PO 40 mg AC-BRKFST AIDEN Administration Sodium Chloride 10 ml 01/16/18 21:00 01/17/18 08:19 Saline Flush IV 10 ml BID AIDEN Administration Temazepam 15 mg 01/16/18 20:08 Restoril PO HS PRN Insomnia Vitamin B Complex/Vit C/Vit E/Zinc 1 each 01/17/18 09:00 01/17/18 08:19 Z-Bec PO 1 each DAILY AIDEN Administration Intake and Output 01/16/18 01/17/18 01/17/18 22:59 06:59 14:59 Intake Total 118 Balance 118 Intake: Oral 118 Other: Voiding Method Toilet Urinal # Voids 1 1 Weight 82.6 kg 01/16/18 12:20 01/16/18 12:20 EKG Interpretations (text) EKG shows normal sinus rhythm with no acute changes. Assessment and Plan Plan: Assessment and plan #1 left flank and rib discomfort, atypical for acute coronary syndrome. Pulmonary embolism ruled out on CTA, suggestion of left lower lobe pneumonia. Troponins negative 2. EKG shows normal sinus rhythm with no acute changes. #2 history of DVT and pulmonary embolism 7 years ago #3 history of skin cancer #4 cardiac risk factors negative for hypertension, no diabetes, no hyperlipidemia, nonsmoker. Plan We will obtain a third troponin value and repeat EKG this morning. Discontinue Nitropaste. Decrease aspirin 81 mg daily. Seen echocardiogram with Doppler study. Patient has been initiated on antibiotics for possible pneumonia. Further recommendations to follow. DNP note has been reviewed, I agree with a documented findings and plan of care. Patient was seen and examined.
[2018-01-17] MEDS ORDERED: AZITHROMYCIN 500 MG TAB PO SCH (09:00)
[2018-01-17] MEDS ORDERED: cefTRIAXone IN SWFI 1,000 MG/10 ML SYRINGE IVP SCH (09:00)
[2018-01-17] MEDS ORDERED: NON-FORMULARY DRUG (Calcium/Magnesium/Zinc [Calcium-Magnesium-Zinc Tablet] 1 TAB) PO SCH (09:00)
[2018-01-17] MEDS ORDERED: ASPIRIN 325 MG TAB PO SCH (09:00)
[2018-01-17] MEDS ORDERED: ASPIRIN 81 MG PO SCH (09:00)
[2018-01-17] MEDS ORDERED: B COMPLEX-VIT C-VIT E-ZINC 1 EACH TAB PO SCH (09:00)
[2018-01-17] MEDS ORDERED: ONDANSETRON 4 MG/2 ML VIAL IVP PRN (10:26)
[2018-01-17 10:39] VITALS: RESP 20
[2018-01-17] MEDS: IPRATROPIUM-ALBUTEROL 3 ML NEB INHALATION SCH ×3 (11:00→15:26)
[2018-01-17 13:07] VITALS: BP 108/53; TEMP 98.4
[2018-01-17 15:37] VITALS: PULSE 77
--- NOTE | 2018-01-17 16:34 | CONS ---
CONSULTATION This is a gentleman who is 62 years of age, had a stress test apparently a couple of years ago that was normal. He came in with what seems to be a left lateral discomfort in the chest. The quality of the pain is very atypical almost pleuritic type pain. However, patient has a remote history of DVT pulmonary embolism 7 years ago. He had a CT angiography yesterday which revealed no evidence of pulmonary embolism. There is a question of infiltrate. He is resting comfortably without symptoms. Troponins are normal. CT angiography was unremarkable. Patient's pain seems to be musculoskeletal and he can be discharged today. I will be happy to follow up with him as an outpatient. At this time, no intervention is necessary. We will do a stress test when his musculoskeletal pain improves and this can be done as an outpatient. Discussed my thoughts in detail with the patient and . I also reviewed his echocardiogram which did not reveal any significant abnormalities and communicated this to the patient's family. This note is an addendum to the consult dictated by Dr. Xiomy Arana, nurse practitioner. MMYESSIL / EMMANUELLEN: [id number] /
--- NOTE | 2018-01-18 04:58 | DS ---
DISCHARGE SUMMARY DATE OF SERVICE: 01/17/2018 FINAL DIAGNOSES: 1. Possible acute left lower pneumonia, community-acquired with pleurisy and chest pain. 2. Myocardial infarction ruled out. 3. History of deep vein thrombosis, pulmonary embolism. 4. History of nephrolithiasis. 5. History of tonsillectomy. DISCHARGE DISPOSITION: The patient is being discharged in stable condition with guarded prognosis. Cardiology cleared the patient for discharge. HISTORY OF PRESENT ILLNESS: This 62-year-old gentleman with a past medical history of multiple medical problems admitted with chest pain, myocardial infarction ruled out. The CT scan and chest x-ray suggestive of pneumonia. The patient treated with antibiotics. Patient improved significantly. The patient is keen on going home. On exam, vital signs are stable. CARDIOVASCULAR: S1, S2. Abdomen soft. Nervous system: No focal deficits. DISCHARGE ADVICE AND MEDICATIONS: 1. Diet is cardiac diet. 2. Activity limited until followup. 3. Follow up with Dr. Diamond 1-2 days. 4. Follow up with cardiology as recommended. MEDICATIONS: 1. Albuterol 2 puffs t.i.d. and p.r.n. 2. Zithromax 500 mg p.o. daily for 1 week. 3. Calcium magnesium zinc 1 p.o. daily. 4. Zithromax for 5 days. 5. Motrin 400 mg q.6h p.r.n. 6. Vitamin B12 1 p.o. daily. Once again, the patient will be discharged in stable condition with guarded prognosis. MMODL / IJN: [id number] /
--- NOTE | 2018-01-18 08:14 | ECHOF ---
Referral Reason:chest pain MEASUREMENTS -------- HEIGHT: 177.8 cm WEIGHT: 82.6 kg BP: 101/55 IVSd: 1.2 cm (0.6 - 1.1) LVIDd: 4.9 cm (3.9 - 5.3) LVPWd: 1.2 cm (0.6 - 1.1) IVSs: 1.8 cm LVIDs: 3.2 cm LVPWs: 1.6 cm LAESV Index (A-L): 19.54 ml/m Ao Diam: 3.2 cm (2.0 - 3.7) AV Cusp: 2.1 cm (1.5 - 2.6) LA Diam: 2.7 cm (2.7 - 3.8) MV E Tam: 0.98 m/s MV DecT: 252 ms MV A Tam: 0.80 m/s MV E/A Ratio: 1.23 RAP: 5.00 mmHg RVSP: 24.72 mmHg MV EF SLOPE: 110.82 mm/s (70 - 150) MV EXCURSION: 2.08 cm (> 18.000) FINDINGS -------- Sinus rhythm. This was a technically good study. The left ventricular size is normal. There is mild concentric left ventricular hypertrophy. Overa ll left ventricular systolic function is normal with, an EF between 55 - 60 %. The right ventricle is normal in size and function. Normal LA size by volume 22+/-6 ml/m2. The right atrium is normal in size. Aortic valve is trileaflet and is mildly thickened. There is no evidence of aortic regurgitation. There is no evidence of aortic stenosis. The mitral valve leaflets are mildly thickened. There is trace to mild mitral regurgitation. Trace tricuspid regurgitation present. Right ventricular systolic pressure is normal at < 35 mmHg. There is no evidence of pulmonary hypertension. Trace/mild (physiologic) pulmonic regurgitation. The aortic root size is normal. Normal inferior vena cava with normal inspiratory collapse consistent with estimated right atrial pre ssure of 5 mmHg. There is no pericardial effusion. CONCLUSIONS -------- 1. Sinus rhythm. 2. This was a technically good study. 3. The left ventricular size is normal. 4. There is mild concentric left ventricular hypertrophy. 5. Overall left ventricular systolic function is normal with, an EF between 55 - 60 %. 6. Normal LA size by volume 22+/-6 ml/m2. 7. Aortic valve is trileaflet and is mildly thickened. 8. The mitral valve leaflets are mildly thickened. 9. There is trace to mild mitral regurgitation. 10. Trace tricuspid regurgitation present. 11. Right ventricular systolic pressure is normal at < 35 mmHg. 12. There is no evidence of pulmonary hypertension. 13. Trace/mild (physiologic) pulmonic regurgitation. 14. The aortic root size is normal. 15. There is no pericardial effusion. TRACTOR TRAILER TECHNICIAN: Cordell Baca RDCS
--- NOTE | 2018-01-30 11:22 | CDI ---
Outpatient Documentation Clarification Form Date: 01-30-18 CDS/Medical Lab Director Name: ALAINA KLINE Phone: If any questions, call Kasandra Driver Activity Aid at [phone] Patient Name: CHARLIE COOK Admit Date:[id number] Discharge Date:[id number] ATTENTION: The [facility] Coding Staff appreciate your assistance in clarifying documentation. Please respond to the clarification below the line at the bottom and electronically sign. The [facility] Coding staff will review the response and follow-up if needed. Please note: Queries are made part of the Legal Health Record. If you have any questions, please contact the Activity Aid. Dear Dr. PAGAN, If the patient had confirmed diagnosis of "Pleurisy", please add below the line on this form. Thank you for your kind consideration. Alaina Kline ANGELD
== END 2018-01-17 18:22 | disposition home or self-care (01) ==
LOC: EC 12:05 → 6SEL 14:30
PROVIDERS: ADMIT Internal Medicine; ATTEND Internal Medicine
DX: R09.1 Pleurisy (principal); R07.89 Other chest pain; R05 Cough; R07.81 Pleurodynia; R10.9 Unspecified abdominal pain; R11.10 Vomiting, unspecified; R53.1 Weakness; R68.83 Chills (without fever); M54.6 Pain in thoracic spine; Z86.718 Personal history of other venous thrombosis and embolism; Z86.711 Personal history of pulmonary embolism; Z85.828 Personal history of other malignant neoplasm of skin; Z87.442 Personal history of urinary calculi; Z82.49 Family history of ischemic heart disease and other diseases of the circulatory system; Z88.5 Allergy status to narcotic agent; Z88.6 Allergy status to analgesic agent
CPT/HCPCS: 99285 ×2; 96365 ×2; 96375 ×3; 96376; 96366; 96372; 36415; 94640 ×2; 93005; 93306; 80053; 82550; 82553; 83735; 84484; 85025; 85610; 85730; 87040; 71046; 71275; G0378 ×2; J1644; J2405; J0456; J0696 ×2; Q9967

== ENCOUNTER 2021-03-12 10:03 | Day surgery (SDC) | payer BC, MEDICARE ==
[2021-03-09 08:42] VITALS: BMI 26.5
[~2021-03-12 10:03] MED LIST: LACTATED RINGERS 1,000 ML IV SCH; LIDOCAINE 1% (10MG/ML) FOR IV START INTRADERMA PRN
[2021-03-12 10:32] VITALS: TEMP 98.3
[2021-03-12] MEDS ORDERED: PROPOFOL 10 MG/ML 20 ML VIAL IV ONE (11:01)
--- NOTE | 2021-03-12 11:29 | P.PCN ---
Date of Procedure: 03/12/21 Description of Procedure: BRIEF HISTORY: Patient is a 65-year-old male presenting for outpatient colonoscopy for screening for malignant neoplasm of the colon. He states last colonoscopy was just over 10 years ago. No family history of colon cancer. He does report some episodes of constipation with some lower abdominal cramping. PROCEDURE PERFORMED: Colonoscopy with polypectomy. PREOPERATIVE DIAGNOSIS: Screening for malignant neoplasm of the colon, patient was colonoscopy a pproximately 10 years ago. ESTIMATED BLOOD LOSS: Minimal. IV sedation per Anesthesia. PROCEDURE: After informed consent was obtained, the patient, was brought into the endoscopy unit. IV sedation was administered by Anesthesia under continuous monitoring. Digital rectal examination was normal. Initially the Olympus CF-190 flexible video colonoscope was then inserted in the rectum, gradually advanced into the cecum without any difficulty. Careful examination was performed as the scope was gradually being withdrawn. Ileocecal valve and the appendiceal orifice were visualized and appeared normal. Prep was excellent. Mucosa of the cecum, ascending colon, transverse colon, descending colon, sigmoid colon, and rectum appeared normal. A diminutive 1 mm ascending colon polyp was removed cold forcep polypectomy. Retroflexion was performed in the rectum and no lesions were seen, with internal hemorrhoids noted. The patient tolerated the procedure well. IMPRESSION: Diminutive ascending colon polyp removed with cold forcep polypectomy. Otherwise normal-appearing colon from rectum to cecum. Internal hemorrhoids. RECOMMENDATIONS: Findings of this examination were discussed with the patient and his family. Okay to resume diet. Okay to resume medications. Await pathology from polypectomy. Recommend repeat colonoscopy in 7 years for colon polyp, if polypectomy significant for hyperplastic polyp then 10 years. Patient can start a trial of OTC MiraLAX daily for constipation.
[2021-03-12 11:45] VITALS: BP 117/76; PULSE 78; RESP 18
== END 2021-03-12 12:10 | disposition home or self-care (01) ==
LOC: ORWHC2ENDO 10:03
PROVIDERS: ATTEND Internal Medicine
DX: Z12.11 Encounter for screening for malignant neoplasm of colon (principal); D12.2 Benign neoplasm of ascending colon; K64.8 Other hemorrhoids; K59.00 Constipation, unspecified
CPT/HCPCS: 45380; 88305; J2704

== ENCOUNTER → 2021-07-26 | Outpatient (CLI) | payer MEDICARE ==
--- NOTE | 2021-07-27 07:41 | XR ---
EXAMINATION TYPE: XR KUB DATE OF EXAM: 07/26/2021 COMPARISON: 12/05/2010 INDICATION: Right abdomen pain TECHNIQUE: Single view abdomen supine view FINDINGS: Nonspecific bowel gas is present Psoas margins are normal. No organomegaly is present. There is a 1.5 cm calcification over the right kidney. Stable phleboliths within the pelvis IMPRESSION: 1. Right renal calcification
== END | disposition home or self-care (01) ==
LOC: RADXRMAIN 16:59
PROVIDERS: ATTEND Urology
DX: N20.0 Calculus of kidney (principal)
CPT/HCPCS: 74018

== ENCOUNTER → 2021-08-01 | Outpatient (CLI) | payer MEDICARE ==
--- NOTE | 2021-08-01 12:09 | XR ---
KUB HISTORY: N 20.1, post lithotripsy Frontal KUB submitted and correlated to prior exam 07/26/2021 There is multiple gravel like density within the distal ureter on the right consistent with post lith otripsy change. The calcifications seen on prior exam overlying the right kidney is no longer seen. A dditional calcifications within the pelvis are stable. No other significant interval change. IMPRESSION: Post lithotripsy change.
== END | disposition home or self-care (01) ==
LOC: RADXRMAIN 11:52
PROVIDERS: ATTEND Urology
DX: Z48.816 Encounter for surgical aftercare following surgery on the genitourinary system (principal); N28.89 Other specified disorders of kidney and ureter
CPT/HCPCS: 74018

== ENCOUNTER → 2021-08-30 | Outpatient (CLI) | payer MEDICARE ==
--- NOTE | 2021-08-30 14:51 | XR ---
EXAMINATION TYPE: XR KUB DATE OF EXAM: 08/30/2021 2:13 PM CLINICAL HISTORY: Right sided lithotripsy a few weeks ago. History of kidney stones. TECHNIQUE: Two supine KUB images of the abdomen are obtained. COMPARISON: Abdominal x-ray dated 08/01/2021. FINDINGS: Improved small calculi along the distal right ureter medial to the right-sided pelvic phleb oliths. Stable left-sided pelvic phleboliths. Overall nonobstructive bowel gas pattern. Lung bases are clear. Visualized osseous structures are int act. IMPRESSION: As above
== END | disposition home or self-care (01) ==
LOC: RADXRMAIN 13:57
PROVIDERS: ATTEND Urology
DX: N20.1 Calculus of ureter (principal); I87.8 Other specified disorders of veins
CPT/HCPCS: 74018

== ENCOUNTER 2022-09-20 13:20 | Emergency (ER) | payer MEDICARE ==
[2022-09-20 13:33] VITALS: TEMP 98
[2022-09-20 16:03] LABS: Albumin 4.1 g/dL (3.5-5.0); Calcium 9.2 mg/dL (8.4-10.2); Magnesium 2.2 mg/dL (1.6-2.3); Potassium 4.6 mmol/L (3.5-5.1); Total Bilirubin 0.6 mg/dL (0.2-1.3); Total Protein 6.3 g/dL (6.3-8.2)
--- NOTE | 2022-09-20 16:15 | ED ---
Chest Pain HPI - General Source: patient Mode of arrival: ambulatory Limitations: no limitations <Janice Alvarez - Last Filed: 09/20/22 16:05> <Phil Snyder - Last Filed: 09/20/22 19:55> - General Chief Complaint: Chest Pain Stated Complaint: chest pain Time Seen by Provider: 09/20/22 16:03 - History of Present Illness Initial Comments: 67-year-old male presents to the emergency department reporting chest pain. States that it started Friday while he was shoveling snow. Located over the left side of his chest and is described as sharp shooting pain. Reports to shortness of breath with inspiration. Denies previous history of cardiac disease. Does have family history of cardiac disease. 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 He was on [facility] for 6 months and taken off. PE was unprovoked. He denies any fevers, chills or cough. No ripping or tearing sensation in his back. No numbness or tingling in his extremities. No other alleviating, precipitating or modifying factors (Janice Alvarez) - Related Data Home Medications Medication Instructions Recorded Confirmed Rosuvastatin Calcium 20 mg PO HS 09/20/22 09/20/22 Allergies Allergy/AdvReac Type Severity Reaction Status Date / Time hydrocodone [From [facility]] AdvReac Abdominal Verified 09/20/22 17:09 Pain/Hallucinations/Dizziness Review of Systems ROS Other: All systems not noted in ROS Statement are negative. <Janice Alvarez - Last Filed: 09/20/22 16:05> ROS Other: All systems not noted in ROS Statement are negative. <Phil Snyder - Last Filed: 09/20/22 19:55> ROS Statement: Those systems with pertinent positive or pertinent negative responses have been documented in the HPI. EKG Findings - EKG Comments: EKG Findings:: EKG demonstrates sinus rhythm rate 78. ME interval 173. QRS 90. QTC 401. No acute ST segment elevations or depressions. <Janice Alvarez - Last Filed: 09/20/22 16:05> Past Medical History Past Medical History: Cancer, Deep Vein Thrombosis (DVT), Pulmonary Embolus (PE) Additional Past Medical History / Comment(s): skin cancer, past kidney stone, hx of mild concussion /work inj, broken jaw History of Any Multi-Drug Resistant Organisms: None Reported Past Surgical History: Tonsillectomy Additional Past Surgical History / Comment(s): skin cancer removed near eye. and skin bx on back-neg. keke cataracts removed, FRACTURED JAW -WIRED AND LATER WIRES REMOVED Past Anesthesia/Blood Transfusion Reactions: No Reported Reaction Past Psychological History: No Psychological Hx Reported Smoking Status: Never smoker Past Alcohol Use History: None Reported Past Drug Use History: None Reported - Past Family History Father Family Medical History: CVA/TIA Additional Family Medical History / Comment(s): pacemaker, brain anuerysm- Mother Family Medical History: CVA/TIA, Myocardial Infarction (ND) Additional Family Medical History / Comment(s): <Janice Alvarez - Last Filed: 09/20/22 16:05> General Exam Limitations: no limitations General appearance: alert, in no apparent distress Head exam: Present: atraumatic, normocephalic, normal inspection Eye exam: Present: normal appearance, PERRL, EOMI. Absent: scleral icterus, conjunctival injection, periorbital swelling ENT exam: Present: normal exam, mucous membranes moist Neck exam: Present: normal inspection. Absent: tenderness, meningismus, lymphadenopathy Respiratory exam: Present: normal lung sounds bilaterally, chest wall tenderness (over left side). Absent: respiratory distress, wheezes, rales, rhonchi, stridor Cardiovascular Exam: Present: regular rate, normal rhythm, normal heart sounds. Absent: systolic murmur, diastolic murmur, rubs, gallop, clicks GI/Abdominal exam: Present: soft, normal bowel sounds. Absent: distended, tenderness, guarding, rebound, rigid Extremities exam: Present: normal inspection, full ROM, normal capillary refill. Absent: tenderness, pedal edema, joint swelling, calf tenderness Back exam: Present: normal inspection Neurological exam: Present: alert, oriented X3, CN II-XII intact Psychiatric exam: Present: normal affect, normal mood Skin exam: Present: warm, dry, intact, normal color. Absent: rash <Janice Alvarez - Last Filed: 09/20/22 16:05> Course <Phil Snyder - Last Filed: 09/20/22 19:55> Vital Signs 09/20/22 09/20/22 13:30 18:42 Temperature 98 F Pulse Rate 81 81 Respiratory 20 14 Rate Blood Pressure 141/74 131/80 O2 Sat by Pulse 99 98 Oximetry - Reevaluation(s) Reevaluation #1: 09/20/22 19:45 Patient was endorsed to me by ED physician Dr. Alvarez secondary to shift change. Patient denies having any chest pain or symptoms at this time. Patient is currently breathing comfortably with a normal room air oxygen saturation. Patient is aware of his test results. I have discussed the option to admit the patient to the hospital for cardiac monitoring and serial troponins, but patient declines, stating that he wishes to be discharged home. Patient states that he will follow up closely with his primary care provider. Patient was counseled about chest pain, and he was clearly explained return and follow-up instructions. Patient was instructed to return to the ED should his symptoms return or worsen. Patient was also instructed to follow up closely with his primary care provider. Patient feels comfortable with this plan. (Phil Snyder) Chest Pain MDM <Janice Alvarez - Last Filed: 09/20/22 16:05> <Phil Snyder - Last Filed: 09/20/22 19:55> - MDM Was pt. sent in by a medical professional or institution ([facility], SE[employer], urgent care, hospital, or prison...) When possible be specific @ -[No] Did you speak to anyone other than the patient for history (EMS, parent, family, police, friend...)? What history was obtained from this source Patient's Did you review nursing and triage notes (agree or disagree)? Why? @ -[I reviewed and agree with nursing and triage notes] Were old charts reviewed (outside hosp., previous admission, EMS record, old EKG, old radiological studies, urgent care reports/EKG's, prison records)? Report findings @ -[No old charts were reviewed] Differential Diagnosis (chest pain, altered mental status, abdominal pain women, abdominal pain men, vaginal bleeding, weakness, fever, dyspnea, syncope, headac he, dizziness, GI bleed, back pain, seizure, CVA, palpatations, mental health)? @ -Differential Chest Pain: Stable Angina, Unstable Angina, STEMI, NSTEMI Aortic Dissection, Pneumothorax, Musculoskeletal, Esophageal Spasm GERD, Cholecystitis, Pancreatitis, Zoster, this is not meant to be an all-inclusive list. EKG interpreted by me (3pts min.). @ -Yes X-rays interpreted by me (1pt min.). @ -[None done] CT interpreted by me (1pt min.). @ -Yes U/S interpreted by me (1pt. min.). @ -[None done] What testing was considered but not performed or refused? (CT, X-rays, U/S, labs)? Why? @ -None What meds were considered but not given or refused? Why? @ -Nitro however patient refused as previously he had a very bad headache with nitro demonstration Did you discuss the management of the patient with other professionals (professionals i.e. , PA, SEAM CHECKER, lab, RT, psych nurse, social service assistant, programming manager, teacher, purchasing officer, caser up)? Give summary @ -[No] Was smoking cessation discussed for >3mins.? @ -[No] Was critical care preformed (if so, how long)? @ -[No] Were there social determinants of health that impacted care today? How? (Homelessness, low income, unemployed, alcoholism, drug addiction, transportation, low edu. Level, literacy, decrease access to med. care, half-way, rehab)? @ -[No] Was there de-escalation of care discussed even if they declined (Discuss DNR or withdrawal of care, Hospice)? DNR status @ -[No] What co-morbidities impacted this encounter? (DM, HTN, Smoking, COPD, CAD, Cancer, CVA, ARF, Chemo, Hep., AIDS, mental health diagnosis, sleep apnea, morbid obesity)? PE/DVT Was patient admitted / discharged? Hospital course, mention meds given and route, prescriptions, significant lab abnormalities, going to OR and other pertinent info. @ -Upon arrival patient was placed into room 22. Thorough history and physical exam was performed. 12-lead EKG was obtained. He is placed on continuous pulse ox and cardiac monitoring. IV is established laboratory studies are conducted. They are pending at this time. Patient will be signed out to Dr. Snyder for lab and CT results Undiagnosed new problem with uncertain prognosis? @ -Yes Drug Therapy requiring intensive monitoring for toxicity (Heparin, Nitro, Insulin, Cardizem)? @ -[No] Were any procedures done? @ -[No] (Janice Alvarez) CT angiography chest with IV contrast (radiologist read): 1. No evidence of pulmonary embolism. 2. Right middle lobe 5 and 4 mm pulmonary nodules stable back to 2018 and likely benign. Patient was endorsed to me by Dr. Alvarez secondary to shift change (please see above for her MDM). Patient's labs are fairly unremarkable, including 2 negative troponins drawn over [address] angiography chest is negative for pulmonary embolism. I have discussed the option to admit the patient to the hospital for cardiac monitoring and serial troponins, but patient declines, stating that he wishes to be discharged home. Patient states that he will follow up closely with his primary care provider. Patient was counseled about chest pain, and he was clearly explained return and follow-up instructi ons. Will discharge patient home at this time. I do not suspect an emergent medical condition at this time. Diagnosis/ymptom? @ -[Chest pain] Acute, or Chronic, or Acute on Chronic? @ -Acute Uncomplicated (without systemic symptoms) or Complicated (systemic symptoms)? @ -Uncomplicated Side efectsof treatment? @ -[none] Exacerbation, Progression, or Severe Exacerbation] @ -[no] Poses a threat to life r odily function? @ -[no] (Phil Snyder) Disposition <Janice Alvarez - Last Filed: 09/20/22 16:05> Is patient prescribed a controlled substance at d/c from ED?: No Time of Disposition: 19:55 <Phil Snyder - Last Filed: 09/20/22 19:55> Clinical Impression: Chest pain Disposition: HOME SELF-CARE Condition: Stable Referrals: Thomas Diamond DO [Primary Care Provider] - 1-2 days
--- NOTE | 2022-09-20 16:43 | CT ---
EXAMINATION TYPE: CT chest angio for PE CT DLP: 279.3 mGycm, Automated exposure control for dose reduction was used. DATE OF EXAM: 09/20/2022 4:32 PM COMPARISON: CT chest 01/16/2018 CLINICAL INDICATION:Male, 67 years old with history of cp, hx pe; chest pain, hx of PE/DVT TECHNIQUE/CONTRAST: CTA scan of the thorax is performed with IV Contrast, patient injected with 72cc mL of Isovue 370, pu lmonary embolism protocol. MIP images are created and reviewed these are created on a separate works tation.. FINDINGS: Pulmonary Artery: There is no evidence for a filling defect within the pulmonary vasculature to sugge st acute pulmonary embolism. The pulmonary artery is of normal size. Lungs/Pleura: No evidence of focal consolidation, pleural effusion or pneumothorax. Right upper lobe calcified granuloma. Intrafissural lymph node on the right minor fissure. Right middle lobe 5 mm pulm onary nodule and 4 mm pulmonary nodule. These are stable back to 2018. Airway: Large airways are patent. Heart: Heart is within normal limits for size. Atherosclerosis of the coronary arteries. Vasculature: No evidence of aortic aneurysm. Mediastinum: No gross evidence of adenopathy. Musculoskeletal: No acute osseous abnormalities Soft Tissues: Unremarkable. Lower neck: No significant findings. Upper Abdomen: No significant findings. IMPRESSION: 1. No evidence of pulmonary embolism. 2. Right middle lobe 5 and 4 mm pulmonary nodules stable back to 2018 and likely benign.
[2022-09-20 17:32] LABS: Partial Thromboplastin Time 21.2 sec (22.0-30.0); Prothrombin Time 10.5 sec (9.0-12.0)
[2022-09-20 18:54] LABS: Basophils % (A) 1 %; Eosinophils # (A) 0.3 k/uL (0-0.7); Eosinophils % (A) 6 %; HCT 42.9 % (39.0-53.0); HGB 14.7 gm/dL (13.0-17.5); Lymphocytes # (A) 1.8 k/uL (1.0-4.8); Lymphocytes % (A) 34 %; MCH 32.8 pg (25.0-35.0); MCHC 34.2 g/dL (31.0-37.0); Mean Platelet Volume 7.2; Monocytes # (A) 0.3 k/uL (0-1.0); Monocytes % (A) 6 %; Neutrophils # (A) 2.7 k/uL (1.3-7.7); Neutrophils % (A) 52 %; Platelet Count 179 k/uL (150-450); RBC 4.47 m/uL (4.30-5.90); RDW 12.9 % (11.5-15.5); WBC 5.3 k/uL (3.8-10.6)
[2022-09-20 20:06] VITALS: BP 135/87; PULSE 76; RESP 18
== END 2022-09-20 20:09 | disposition home or self-care (01) ==
LOC: EC 13:20
DX: R07.89 Other chest pain (principal); Z86.718 Personal history of other venous thrombosis and embolism; Z88.5 Allergy status to narcotic agent; Z79.899 Other long term (current) drug therapy
CPT/HCPCS: 36415; 93005; 80053; 83690; 83735; 84484; 85025; 85610; 85730; 71275; 99285; Q9967

== ENCOUNTER → 2023-02-19 | Outpatient (CLI) | payer MEDICARE ==
--- NOTE | 2023-02-19 07:48 | US ---
EXAMINATION TYPE: US abdomen complete DATE OF EXAM: 02/19/2023 COMPARISON: CT 2018 CLINICAL INDICATION: Male, 67 years old with history of R10.11 R10.13; RUQ and epigastric pain. TECHNIQUE: Multiple sonographic images of the abdomen are obtained. FINDINGS: EXAM MEASUREMENTS: Liver Length: 15.8 cm Gallbladder Wall: 0.19 cm CBD: 0.51 cm Spleen: 9.7 cm Right Kidney: 11.3 x 5.7 x 5.1 cm Left Kidney: 11.2 x 5.0 x 5.1 cm [employer]PER[employer] NOTES: Exam is limited due to gas. Pancreas: Not well seen. Liver: Appears coarse with increased echogenicity. Multiple septated anechoic areas seen. Septated anechoic area seen left lobe: 1.0 x 0.9 x 0.6 cm. Larger septated anechoic area in right lobe: 1.4 x 1.1 x 1.1 cm. Gallbladder: Appears wnl Evidence for sonographic Apple's sign: No CBD: Appears wnl Spleen: Limited due to gas. Right Kidney: No hydronephrosis or masses seen Left Kidney: Lobulated contour. No distinct masses seen. Upper IVC: Appears wnl Abd Aorta: Proximal segment appears aneurysmal measurin.5 cm. Iliacs were obscured. IMPRESSION: 1. Coarsened hepatic echotexture suggestive of underlying hepatocellular disease. Few scattered cyst s and slightly complex cysts present within the liver. These can be completely evaluated MRI liver ma ss protocol if clinically warranted. 2. Proximal segment abdominal aortic aneurysm measuring up to 2.5 cm.
== END | disposition home or self-care (01) ==
LOC: RADUSWWP 06:47
PROVIDERS: ATTEND Family Medicine
DX: I71.40 Abdominal aortic aneurysm, without rupture, unspecified (principal); N28.1 Cyst of kidney, acquired; R10.11 Right upper quadrant pain; R10.13 Epigastric pain
CPT/HCPCS: 76700

== ENCOUNTER → 2025-02-16 | Outpatient (CLI) | payer MEDICARE ==
--- NOTE | 2025-02-16 10:31 | US ---
EXAMINATION TYPE: US thyroid st tissue head/neck DATE OF EXAM: 02/16/2025 COMPARISON: NONE CLINICAL INDICATION: Male, 69 years old with history of R94.6 ABNORMAL RESULTS OF THYROID FUNCTION ST UDIES; Abnormal labs. Not on thyroid meds. TECHNIQUE: Grayscale and color Doppler imaging of the thyroid gland. FINDINGS: GLAND SIZE: Right Lobe: 4.6 x 1.6 x 1.4 cm Overall Parenchyma: homogeneous Left Lobe: 4.2 x 1.2 x 1.1 cm Overall Parenchyma: homogeneous Isthmus Thickness: 0.3 cm NODULES RIGHT: # of nodules measured on right: 0 LEFT: # of nodules measured on left: 0 ISTHMUS: # of nodules measured in the isthmus: 0 Bilateral neck scanned, no evidence of lymphadenopathy. IMPRESSION: No discrete nodules. There appears to be slight hyperemia on the provided images. Correlate to exclud e diffuse thyroiditis. [facility], Workstation: [id number], 02/16/2025 10:29 AM
== END | disposition home or self-care (01) ==
LOC: RADUSWWP 08:32
PROVIDERS: ATTEND Family Medicine
DX: R94.6 Abnormal results of thyroid function studies (principal)
CPT/HCPCS: 76536